=== PATIENT | male | born 1970 | race Caucasian/White ===

== ENCOUNTER 2017-08-01 20:08 | Emergency (ER) | payer OTHER, SELFPAY ==
[~2017-08-01] VITALS: Ht 177.8 cm; Wt 77.3 kg
[2017-08-01 20:08] VITALS: BP 143/66
[2017-08-01] MEDS ORDERED: IBUP-1022 PO (21:43)
[2017-08-01] MEDS ORDERED: IBUPROFEN 600 MG TAB PO ONE (21:45)
--- NOTE | 2017-08-03 13:20 | REP ---
LEFT ANKLE SERIES: Four views of the left ankle performed. There is no acute fracture or dislocation. The ankle mortise appears anatomic. There is a tiny inferior calcaneal spur. There does appear to be a joint effusion present. IMPRESSION: No acute fracture or dislocation. There appears to be a joint effusion. Further evaluation may be made with MRI if clinically indicated. Signed by Vin Bennett MD 08/03/2017 07:01 P
== END 2017-08-01 22:20 | disposition home or self-care (01) ==
LOC: M ED 20:08
DX: S93.402A Sprain of unspecified ligament of left ankle, initial encounter (principal); W19.XXXA Unspecified fall, initial encounter; X50.9XXA Other and unspecified overexertion or strenuous movements or postures, initial encounter; Y92.89 Other specified places as the place of occurrence of the external cause; Y93.01 Activity, walking, marching and hiking; Y99.8 Other external cause status; F17.210 Nicotine dependence, cigarettes, uncomplicated